=== PATIENT | female | born 1930 | race Caucasian/White ===

== ENCOUNTER 2017-07-08 19:46 | Emergency (ER) | payer OTHER ==
[~2017-07-08] VITALS: Ht 157.5 cm; Wt 55.8 kg
[2017-07-08] MEDS ORDERED: SYNTHROID75 MCG PO (20:31)
== END 2017-07-09 10:08 | disposition home or self-care (01) ==
LOC: ER 19:46
DX: K80.20 Calculus of gallbladder without cholecystitis without obstruction (principal)